=== PATIENT | male | born 1990 | race Hispanic/Latino ===

== ENCOUNTER 2018-08-25 00:03 | Emergency (ER) | payer OTHER ==
[2018-08-25 01:17] LABS: BUN/Creatinine Ratio 16; Blood Urea Nitrogen 18 mg/dL (9-20); Calcium 9.6 mg/dL (8.4-10.2); Hemolysis Index 3
[2018-08-25 01:19] LABS: Basophils % (Auto) 0.4 % (0.0-1.8); Hematocrit 42.6 % (35.5-45.6); Hemoglobin 14.9 gm/dl (11.8-15.2); Lymphocytes % (Auto) 28.7 % (13.4-35.0); Mean Corpuscular HGB Conc 35 % (32-34); Mean Corpuscular Volume 89 fl (84-94); Monocytes # (Auto) 0.6 K/mm3 (0.0-0.8); Platelet Count 209 K/mm3 (140-440); Red Blood Count 4.78 M/mm3 (3.65-5.03); Red Cell Distribution Width 13.6 % (13.2-15.2)
[2018-08-25 02:10] LABS: Bilirubin,Urine NEG (Negative); Blood,Urine NEG (Negative); Color,Urine Yellow (Yellow); Mucus,Urine FEW /HPF; Protein,Urine <15 mg/dL mg/dL (Negative); Urobilinogen,Urine < 2.0 mg/dL (<2.0)
[2018-08-25 02:16] LABS: Benzodiazepines Screen,Urine PRESUMPTIVE NEGATIVE; Cannabinoid Screen,Urine PRESUMPTIVE NEGATIVE; Cocaine Screen,Urine PRESUMPTIVE NEGATIVE; Methadone Screen,Urine PRESUMPTIVE NEGATIVE; Opiate Screen,Urine PRESUMPTIVE NEGATIVE
[2018-08-25] MEDS ORDERED: K-DUR PO ONE (02:16)
[2018-08-25 03:37] LABS: Amphetamine Screen,Urine PRESUMPTIVE POSITIVE
--- NOTE | 2018-08-25 04:32 | Emergency Department Report ---
ED Psych HPI - General Chief Complaint: Psych Stated Complaint: DETOX/MH EVAL Time Seen by Provider: 08/25/18 02:10 Source: patient Mode of arrival: Ambulatory Limitations: No Limitations - History of Present Illness Initial Comments: 27-year-old male the past medical history ADHD, mood disorder, and substance abuse presents to the hospital complaining of suicidal ideation and relapse. Patient has been in a detox program for 3 days. He states that he relapsed and used meth today (prior to his arrival) with his roommates. Both he and his roommate got kicked out of the detox program he presents with his suitcase. Patient is stating he has some also suicidal "on and off". He is a does not have a plan. He states he has cut himself in the past. 2 weeks ago he also used heroin and crack. He denies alcohol addiction. He has voices "sometimes". He complains of redness to his groin and red papules to the skin. No complaints of dysuria or penile discharge. Patient states that the rehabilitation place will not accept him until he is clean for 5 days. He is otherwise homeless - Related Data Allergies Allergy/AdvReac Type Severity Reaction Status Date / Time amoxicillin Allergy Unknown Verified 08/25/18 00:25 Penicillins Allergy Unknown Verified 08/25/18 00:25 ED Review of Systems ROS: Stated complaint: DETOX/MH EVAL Other details as noted in HPI Comment: All other systems reviewed and negative ED Past Medical Hx - Past Medical History Previous Medical History?: Yes Hx Psychiatric Treatment: Yes (adhd, Mood disorder ADD) - Surgical History Past Surgical History?: No - Social History Smoking Status: Current Every Day Smoker Substance Use Type: Alcohol, Cocaine, Heroin, Methamphetamines ED Physical Exam - General Limitations: No Limitations - Other Other exam information: General: No limitations, patient is alert in no acute distress Head exam: Atraumatic, normocephalic Eyes exam: Normal appearance, pupils equal reactive to light, extraocular movements intact ENT: Moist mucous membrane, normal oropharynx Neck exam: Normal inspection, full range of motion, no meningismus nontender Respiratory exam: Clear to auscultation bilateral, no wheezes, rales, crackles Cardiovascular: Tachycardic regular rhythm Abdomen: Soft, nondistended, and nontender, with normal bowel sounds, no rebound, or guarding : Circumcised, no penile lesions or discharge. No rash noted. Extremity: Full range of motion normal inspection no deformity Back: Normal Inspection, full range of motion, no tenderness Neurologic: Alert, oriented x3, cranial nerves intact, no motor or sensory deficit Psychiatric: Anxious Skin: Patient has scattered red papules to skin without signs of infection ED Course Vital Signs 08/25/18 08/25/18 08/25/18 00:19 01:27 02:39 Temperature 98.1 F Pulse Rate 135 H 110 H Respiratory 18 18 18 Rate Blood Pressure 137/78 Blood Pressure 114/77 [Left] O2 Sat by Pulse 99 98 99 Oximetry ED Medical Decision Making - Lab Data Result diagrams: 08/25/18 00:35 08/25/18 00:35 Lab Results 08/25/18 08/25/18 08/25/18 Range/Units 00:35 00:35 00:35 WBC (4.5-11.0) K/mm3 RBC (3.65-5.03) M/mm3 Hgb (11.8-15.2) gm/dl Hct (35.5-45.6) % MCV (84-94) fl MCH (28-32) pg MCHC (32-34) % RDW (13.2-15.2) % Plt Count (140-440) K/mm3 Lymph % (Auto) (13.4-35.0) % [place] % (Auto) Eos % (Auto) (0.0-4.3) % Baso % (Auto) (0.0-1.8) % Lymph # (1.2-5.4) K/mm3 [place] # (0.0-0.8) K/mm3 Eos # (0.0-0.4) K/mm3 Baso # (0.0-0.1) K/mm3 Seg Neutrophils % Seg Neutrophils # (1.8-7.7) K/mm3 Sodium 138 (137-145) mmol/L Potassium 3.3 L (3.6-5.0) mmol/L Chloride 96.6 L (98-107) mmol/L Carbon Dioxide 29 (22-30) mmol/L Anion Gap 16 mmol/L BUN 18 (9-20) mg/dL Creatinine 1.1 (0.8-1.5) mg/dL Estimated GFR > 60 ml/min BUN/Creatinine Ratio 16 % Glucose 66 L (75-100) mg/dL Calcium 9.6 (8.4-10.2) mg/dL Magnesium (1.7-2.3) mg/dL Total Creatine Kinase (55-170) units/L Urine Color (Yellow) Urine Turbidity (Clear) Urine pH (5.0-7.0) Ur Specific [place] (1.003-1.030) Urine Protein (Negative) mg/dL Urine Glucose (UA) (Negative) mg/dL Urine Ketones (Negative) mg/dL Urine Blood (Negative) Urine Nitrite (Negative) Urine Bilirubin (Negative) Urine Urobilinogen (<2.0) mg/dL Ur Leukocyte Esterase (Negative) Urine WBC (Auto) (0.0-6.0) /HPF Urine RBC (Auto) (0.0-6.0) /HPF U Epithel Cells (Auto) (0-13.0) /HPF Urine Mucus /HPF Salicylates < 0.3 L (2.8-20.0) mg/dL Urine Opiates Screen Urine Methadone Screen Acetaminophen < 5.0 L (10.0-30.0) ug/mL Ur Barbiturates Screen Ur Phencyclidine Scrn Ur Amphetamines Screen U Benzodiazepines Scrn Urine Cocaine Screen U Marijuana (THC) Screen Drugs of Abuse Note Plasma/Serum Alcohol (0-0.07) % 08/25/18 08/25/18 08/25/18 Range/Units 00:35 00:35 00:35 WBC 7.1 (4.5-11.0) K/mm3 RBC 4.78 (3.65-5.03) M/mm3 Hgb 14.9 (11.8-15.2) gm/dl Hct 42.6 (35.5-45.6) % MCV 89 (84-94) fl MCH 31 (28-32) pg MCHC 35 H (32-34) % RDW 13.6 (13.2-15.2) % Plt Count 209 (140-440) K/mm3 Lymph % (Auto) 28.7 (13.4-35.0) % [place] % (Auto) [employer] Eos % (Auto) 0.0 (0.0-4.3) % Baso % (Auto) 0.4 (0.0-1.8) % Lymph # 2.0 (1.2-5.4) K/mm3 [place] # 0.6 (0.0-0.8) K/mm3 Eos # 0.0 (0.0-0.4) K/mm3 Baso # 0.0 (0.0-0.1) K/mm3 Seg Neutrophils % [employer] Seg Neutrophils # 4.4 (1.8-7.7) K/mm3 Sodium (137-145) mmol/L Potassium (3.6-5.0) mmol/L Chloride (98-107) mmol/L Carbon Dioxide (22-30) mmol/L Anion Gap mmol/L BUN (9-20) mg/dL Creatinine (0.8-1.5) mg/dL Estimated GFR ml/min BUN/Creatinine Ratio % Glucose (75-100) mg/dL Calcium (8.4-10.2) mg/dL Magnesium 2.50 H (1.7-2.3) mg/dL Total Creatine Kinase 548 H (55-170) units/L Urine Color (Yellow) Urine Turbidity (Clear) Urine pH (5.0-7.0) Ur Specific [place] (1.003-1.030) Urine Protein (Negative) mg/dL Urine Glucose (UA) (Negative) mg/dL Urine Ketones (Negative) mg/dL Urine Blood (Negative) Urine Nitrite (Negative) Urine Bilirubin (Negative) Urine Urobilinogen (<2.0) mg/dL Ur Leukocyte Esterase (Negative) Urine WBC (Auto) (0.0-6.0) /HPF Urine RBC (Auto) (0.0-6.0) /HPF U Epithel Cells (Auto) (0-13.0) /HPF Urine Mucus /HPF Salicylates (2.8-20.0) mg/dL Urine Opiates Screen Urine Methadone Screen Acetaminophen (10.0-30.0) ug/mL Ur Barbiturates Screen Ur Phencyclidine Scrn Ur Amphetamines Screen U Benzodiazepines Scrn Urine Cocaine Screen U Marijuana (THC) Screen Drugs of Abuse Note Plasma/Serum Alcohol < 0.01 (0-0.07) % 08/25/18 08/25/18 Range/Units 01:25 01:25 WBC (4.5-11.0) K/mm3 RBC (3.65-5.03) M/mm3 Hgb (11.8-15.2) gm/dl Hct (35.5-45.6) % MCV (84-94) fl MCH (28-32) pg MCHC (32-34) % RDW (13.2-15.2) % Plt Count (140-440) K/mm3 Lymph % (Auto) (13.4-35.0) % [place] % (Auto) Eos % (Auto) (0.0-4.3) % Baso % (Auto) (0.0-1.8) % Lymph # (1.2-5.4) K/mm3 [place] # (0.0-0.8) K/mm3 Eos # (0.0-0.4) K/mm3 Baso # (0.0-0.1) K/mm3 Seg Neutrophils % Seg Neutrophils # (1.8-7.7) K/mm3 Sodium (137-145) mmol/L Potassium (3.6-5.0) mmol/L Chloride (98-107) mmol/L Carbon Dioxide (22-30) mmol/L Anion Gap mmol/L BUN (9-20) mg/dL Creatinine (0.8-1.5) mg/dL Estimated GFR ml/min BUN/Creatinine Ratio % Glucose (75-100) mg/dL Calcium (8.4-10.2) mg/dL Magnesium (1.7-2.3) mg/dL Total Creatine Kinase (55-170) units/L Urine Color Yellow (Yellow) Urine Turbidity Clear (Clear) Urine pH 5.0 (5.0-7.0) Ur Specific [place] 1.015 (1.003-1.030) Urine Protein <15 mg/dl (Negative) mg/dL Urine Glucose (UA) Neg (Negative) mg/dL Urine Ketones Neg (Negative) mg/dL Urine Blood Neg (Negative) Urine Nitrite Neg (Negative) Urine Bilirubin Neg (Negative) Urine Urobilinogen < 2.0 (<2.0) mg/dL Ur Leukocyte Esterase Neg (Negative) Urine WBC (Auto) 1.0 (0.0-6.0) /HPF Urine RBC (Auto) 1.0 (0.0-6.0) /HPF U Epithel Cells (Auto) < 1.0 (0-13.0) /HPF Urine Mucus Few /HPF Salicylates (2.8-20.0) mg/dL Urine Opiates Screen Presumptive negative Urine Methadone Screen Presumptive negative Acetaminophen (10.0-30.0) ug/mL Ur Barbiturates Screen Presumptive negative Ur Phencyclidine Scrn Presumptive negative Ur Amphetamines Screen Presumptive positive U Benzodiazepines Scrn Presumptive negative Urine Cocaine Screen Presumptive negative U Marijuana (THC) Screen Presumptive negative Drugs of Abuse Note Disclamer Plasma/Serum Alcohol (0-0.07) % - EKG Data -: EKG Interpreted by Me EKG shows normal: sinus rhythm, axis (qrs 93), QRS complexes (qrsd 89), ST-T waves (no stemi/t inv) Rate: normal (84) - EKG Data When compared to previous EKG there are: previous EKG unavailable - Medical Decision Making Significant rash abnormality was identified to patient's testicular scrotal area. He thinks is more red than normal and feels irritated. He will be provided antifungal cream to apply. He was also high on meth po kcl for mild hypokalemia 1013 and transfer form signed for SI. complaints are vague and pt has no where to go after being kicked out of program. ekg shows improved hr - Differential Diagnosis drug intox, suicidal, psychosis, secondary gain Critical Care Time: No Critical care attestation.: If time is entered above; I have spent that time in minutes in the direct care of this critically ill patient, excluding procedure time. ED Disposition Clinical Impression: Methamphetamine abuse, Suicidal ideation, Medical clearance for psychiatric admission Disposition: [id number]/TX-65 PSY HOSP/PSY UNIT Is pt being admited?: No Does the pt Need Aspirin: No Condition: Stable Time of Disposition: 05:36 (awaiting acceptance)
[2018-08-25] MEDS: BUSPAR PO SCH ×2 (11:12→23:05)
--- NOTE | 2018-08-25 13:28 | Consultation ---
History of Present Illness - Reason for Consult Consult date: 08/25/18 Reason for consult: Mental Health Evaluation Requesting physician: ELIZABETH HAYNES - Chief Complaint Chief complaint: "I'm not doing well" - History of Present Psychiatric Illness 27-year-old white male who presented to the ER for drug relapse and SI's. Today the patient was calm, but disorganized during the assessment. He could not answer many of the questions asked of him. He appears preoccupied throughout the interview. He would not confirm or deny SI's when asked. He was asked about his mental health, he stated, "I have some type of mood do." At this time, the patient is a poor historian. Medications and Allergies Allergies Allergy/AdvReac Type Severity Reaction Status Date / Time amoxicillin Allergy Unknown Verified 08/25/18 00:25 Penicillins Allergy Unknown Verified 08/25/18 00:25 Active Meds: Active Medications Buspirone HCl (Buspar) 7.5 mg PO BID WISAM Last Admin: 08/25/18 11:12 Dose: 7.5 mg Documented by: Clotrimazole (Lotrimin) 1 applic TP BID WISAM Olanzapine (Zyprexa) 2.5 mg PO HS [facility] Past psychiatric history - Past Medical History Past Medical History: No medical history Past Surgical History: No surgical history - past Psychiatric treatment and history psychiatric treatment history: Hx of Substance abuse and Bipolar DO per the patient. Denies a fam psy hx. Mental Status Exam - Vital signs Last Vital Signs Temp 98.3 F 08/25/18 10:30 Pulse 99 H 08/25/18 10:30 Resp 18 08/25/18 10:30 BP 107/63 08/25/18 10:30 Pulse Ox 98 08/25/18 10:30 - Exam Narrative exam: MSE: Appearance: in hospital attire Behavior: regular eye contact Speech: regular rate and tone Mood: preoccupied Affect: congruent to mood Thought Process: disorganized Thought Content: denies HI's and VH's, possible paranoid Motor Activity: ambulatory Cognition: A/O x3 Insight: limited Judgment: poor Results Result Diagrams: 08/25/18 00:35 08/25/18 00:35 Abnormal lab results 08/25/18 08/25/18 08/25/18 Range/Units 00:35 00:35 00:35 MCHC (32-34) % Potassium 3.3 L (3.6-5.0) mmol/L Chloride 96.6 L (98-107) mmol/L Glucose 66 L (75-100) mg/dL Magnesium (1.7-2.3) mg/dL Total Creatine Kinase (55-170) units/L Salicylates < 0.3 L (2.8-20.0) mg/dL Acetaminophen < 5.0 L (10.0-30.0) ug/mL 08/25/18 08/25/18 Range/Units 00:35 00:35 MCHC 35 H (32-34) % Potassium (3.6-5.0) mmol/L Chloride (98-107) mmol/L Glucose (75-100) mg/dL Magnesium 2.50 H (1.7-2.3) mg/dL Total Creatine Kinase 548 H (55-170) units/L Salicylates (2.8-20.0) mg/dL Acetaminophen (10.0-30.0) ug/mL All other labs normal. Assessment and Plan Assessment and plan: Impression: Unspecified Mood DO with psy features. Substance Use DO (amphetamines). Today the patient was disorganized during the assessment. DDx: Substance Induced Psychotic/Mood DO Recommendation/Plan: Continue 1013 and start Buspar 7.5 mg PO BID for anxiety and Zyprexa 2.5 mg PO HS for mood/psychosis. Attempted to discuss possible metabolic side effects of Zyprexa with the patient. Dispo: The patient was referred to inpatient psy services. Will staff with Dr. Benoit Castelan.
[2018-08-25] MEDS: LOTRIMIN TP SCH ×2 (17:25→23:05)
--- NOTE | 2018-08-26 11:04 | Progress Note ---
Subjective - Reason for Consult Consult date: 08/26/18 Reason for consult: Psychiatry Follow-up - Chief Complaint Chief complaint: "I slept last night" 27-year-old white male who presented to the ER for drug relapse and SI's. Today the patient was calm and cooperative during the assessment. He stated that he got sleep last night for the first time in days. He stated that he plan to return to a residential rehab treatment facility when discharged. He stated that his life is "out of control" because of his drug use. He denies SI/HI's and AVH's. He denies any side effects of his medications. Mental Status Exam - Vital signs Last Vital Signs Temp 97.5 F L 08/26/18 03:21 Pulse 91 H 08/26/18 03:21 Resp 18 08/26/18 03:21 BP 96/52 08/26/18 03:21 Pulse Ox 99 08/26/18 03:21 - Exam Narrative exam: MSE: Appearance: calm, cooperative Behavior: regular eye contact Speech: regular rate and tone Mood: "okay" Affect: congruent to mood Thought Process: circumstantial Thought Content: denies SI/HI's and AVH's Motor Activity: ambulatory Cognition: A/O x3 Insight: variable to fair Judgment: variable to fair Assessment and Plan Impression: Unspecified Mood DO with psy features. Substance Use DO (amphetamines). Today the patient was calm and cooperative during the assessment. DDx: Substance Induced Psychotic/Mood DO Recommendation/Plan: Reevaluate the patient's 1013 in 24 hours. Continue Buspar 7.5 mg PO BID for anxiety and Zyprexa 2.5 mg PO HS for mood/psychosis. Discussed possible metabolic side effects of Zyprexa with the patient, he verbalized understanding. Dispo: If the patient's 1013 is rescinded in 24 hours, the patient can follow up with [facility] for outpatient psy/rehab services. Will staff with Dr. Benoit Castelan.
[2018-08-26] MEDS: LOTRIMIN TP SCH ×2 (13:26→22:19)
[2018-08-26] MEDS: BUSPAR PO SCH ×2 (13:26→22:18)
[2018-08-27] MEDS: BUSPAR PO SCH ×2 (10:36→22:09)
[2018-08-27] MEDS: LOTRIMIN TP SCH ×2 (10:40→22:20)
--- NOTE | 2018-08-27 14:44 | Progress Note ---
Subjective - Reason for Consult Consult date: 08/27/18 Reason for consult: Psychiatric Follow-up Evaluation - Chief Complaint Chief complaint: "Blessed and highly favored" Patient is a 27-year-old white male who presented to the ER for drug relapse and suicidal ideations. Today the patient is calm and cooperative during the assessment. Patient states, " my mood has been good. I'm in the process of signing over my rights, which has increased my depression" Patient endorsed suicidal ideations without a plan. He denies SI/HI's and AVH's. He denies any side effects of his medications. Mental Status Exam - Vital signs Last Vital Signs Temp 97.9 F 08/27/18 14:03 Pulse 83 08/27/18 14:03 Resp 18 08/27/18 14:03 BP 117/63 08/27/18 14:03 Pulse Ox 99 08/27/18 14:03 - Exam Narrative exam: Mental Status Exam Appearance: anxious, cooperative Behavior: regular eye contact Speech: regular rate and tone Mood: "I'm good" Affect: congruent to mood Thought Process: circumstantial Thought Content: denies SI/HI's, delusions, AVH's Motor Activity: ambulatory Cognition: A/O x 3 Insight: variable to fair Judgment: variable to fair Assessment and Plan Impression: Unspecified Mood DO with psy features. Substance Use DO (amphetamines). Today the patient is cooperative but anxious during the assessment. He denies SI/HI's, A/VH's, and delusions. DDx: Substance Induced Psychotic/Mood DO Recommendation/Plan: 1. Will reevaluate the patient's 1013 in 24 hours. 2. Continue Buspar 7.5 mg PO BID for anxiety and Zyprexa 2.5 mg PO HS for mood/psychosis. Discussed possible metabolic side effects of Zyprexa with the patient, he verbalized understanding. Disposition: If the patient's 1013 is rescinded in 24 hours, the patient can follow up with [facility] for outpatient psy/rehab services. Patient accepted to [facility]. Awaiting transport time. Will staff with Dr. Benoit Castelan.
[2018-08-28 04:55] VITALS: BP 91/71
== END 2018-08-28 02:30 ==
LOC: ED 00:03 → EEVIPCON 00:03 → ED 08-28 02:30
DX: F39 Unspecified mood [affective] disorder (principal); F98.8 Other specified behavioral and emotional disorders with onset usually occurring in childhood and adolescence; F90.9 Attention-deficit hyperactivity disorder, unspecified type; F17.200 Nicotine dependence, unspecified, uncomplicated; F14.10 Cocaine abuse, uncomplicated; F15.10 Other stimulant abuse, uncomplicated; Z88.0 Allergy status to penicillin; Z88.1 Allergy status to other antibiotic agents
CPT/HCPCS: 36415; 80048; 80307; 81001; 82550; 83735; 85025; 93005; 93010; 99285; G0480; 80320